=== PATIENT | female | born 1960 | race Caucasian/White ===

== ENCOUNTER 2016-08-17 10:58 | Inpatient (IN) | payer OTHER ==
--- NOTE | 2016-10-31 13:21 | HP ---
DATE OF CLINIC: 10/19/2016 JANET HUNG : 1960 PLANNED PROCEDURE: Right Total Knee Arthroplasty DATE OF PROCEDURE: November 01, 2016 SURGEON: Gorge Graham M.D. PCP: Dr. Jericho Brooks HISTORY OF PRESENT ILLNESS Janet Hung is a 56 year old female. * Medication list reviewed with patient allergy list reviewed with patient. * Tried NSAIDS * Tried Injections * Has not tried Physical Therapy 56-year-old female here for consultation with respect to her right knee. She recently saw Gurdeep on 05/20/16 for evaluation with history as follows: Ms. Hung is an established patient of the office. She is a pleasant 56-year-old female well known to Dr. Graham for left total knee arthroplasty on December 14, 2015 from which she has done well. At the time of her left total knee arthroplasty the patient did have known bilateral knee degenerative joint changes but her left was far more limiting than the right. She now considers her left knee her good knee. She has had several years of progressive atraumatic, right knee pain. No prior interventions from the standpoint of a surgery. She has done physical therapy and will the past and had cortisone injections and these have always been providing relief in short duration. She feels the knee grind as she takes it through motion. Most of her pain is with weight-bearing and is quite diffuse throughout the knee. She continues to have minimal rest pain. Primary pain is with startup. She denies any hip pain or radicular symptoms. She has not had any recent illness. She did have a remote gastric bypass and has lost over 150 pounds. As a result of that she does have some skin fold irritation which has been chronic for her. She is interested in discussion of definitive management options. She feels, besides her pain with weight-bearing that is worse at startup, lack of confidence and inability to trust the knee. After discussion and review of treatment options, both operative and non-operative, she has elected to proceed with surgical intervention and presents today preoperatively. She has had no recent illnesses. Prior radiographs are available for my review from 05/20/16. CURRENT MEDICATION * Amitriptyline HCl 50 MG Tablet 1 every bedtime 0 days, 0 refills * Effexor XR 150 MG Capsule Extended Release 24 Hour 1 once a day 0 days, 0 refills * Ibuprofen 800 MG Tablet as needed 0 days, 0 refills PAST MEDICAL/SURGICAL HISTORY Reported: Medical: A history of cancer melanoma removed from left calf in 1984, Reported numbness in back, Reported tingling in back, history of Arthritis, Depression, Hypertension, Vertigo, and Rheumatoid Arthritis. Surgical / Procedural: Prior surgery Right shoulder scope, RCR revision, LB removal, labral debridement, SAD revision performed by Dr.Brian Johnson at the [facility] on 03/03/2015 removal of malignant melanoma 06/28/1985,Right ankle ligament repair 1985, gastric bypass, 2 previous Right shoulder RCR surgeries, Left knee scope, Right elbow nerve repair, replacement of a knee Left knee replaced 12/14/[address] Graham, Hernia repair 3 mesh replacements (hiatal), umbilical hernia repair, and Carpal Tunnel Surgery (3)Left, (2)Right. Melanoma. SOCIAL HISTORY Behavioral: Caffeine use, current smoker smokes 1/2-1 pack per day for the past 40 yrs, currently trying to quit, and smoking status: Current everyday smoker. Alcohol: Alcohol use. Work: Occupation unemployed. ALLERGIES * No Known Allergies FAMILY HISTORY 1 children living Family medical history mother- heart disease, OA, cancer, HTN, depression father- cancer, HTN, heart disease REVIEW OF SYSTEMS Systemic: No fever and no recent weight change. Head: No head symptoms. Cardiovascular: No cardiovascular symptoms. Pulmonary: No pulmonary symptoms. Gastrointestinal: No gastrointestinal symptoms. Psychological: No psychological symptoms. Skin: No skin lesions and no rash. PHYSICAL FINDINGS * Vitals taken 10/19/2016 03:40 pm BP-Sitting R 144/101 mmHg 100 - 120/56 - 80 BP Cuff Size Regular Pulse Rate-Sitting 85 bpm 50 - 100 Temp-Oral 99.1 F 96 - 101 Height 64.5 in 59 - 69 Weight 225 lbs 12.8 oz 98 - 183 Body Mass Index 38.2 kg/m2 Body Surface Area 2.07 m2 Pain Level 0 Ears, Nose, Throat: * ENT: normal. Lungs: * Clear to auscultation. Cardiovascular: Heart Rate and Rhythm: * Normal. Abdomen: * Normal. Neurological: Motor: * Dominant Hand = Left Hand. Patient is an obese female in no acute distress, normal-appearing mood and affect. She ambulates with an obvious, asymmetric, antalgic gait. She stands with genu valgum and has a significant valgus thrust with ambulation. Left knee shows neutral alignment. Her gait is wide-based and somewhat waddling. Right knee exam shows skin integrity to be well-preserved, no wounds, rashes or lesions. Her genu valgum is correctable to neutral. She has 1+ laxity to valgus stress in full extension and 30 degrees of flexion. She is tender lateral greater than medial, but fairly diffuse. Mild discomfort with patellar compression with crepitation. Patella tracks well. Negative drawer. She has relatively poor muscular contour about the knee, but no obvious atrophy or asymmetry compared to the contralateral side. Mildly tender over the anteromedial proximal tibia. Calf is soft and NT. Distal light touch sensation and motor function are grossly intact and symmetric. Pulses are palpable. Gentle rotation of the hip is non-irritable. Evaluation of the left knee shows a well-healed anterior incision. No swelling or effusion. Good joint play and alignment. Motion is 0-110 degrees. No focal periarticular tenderness. TESTS * Test: CBC WITH DIFF Report Date: 10/19/2016 WBC 6.0 10*3/mL BASOPHIL 0.7 % RBC 4.23 10*6/uL NEUTROPHILS 52.9 % MCH 30.7 pg MCHC 31.6 g/dL Low RDW 14.2 % MCV 97.2 fL PLATELET COUNT 325 10*3/mL IMM NEUT % 0.2 % IMM NEUT # 0.0 10*3/mL MONOCYTES 8.0 % EOSINOPHIL 0.2 % Low HCT 41.1 % HGB 13.0 g/L LYMPHOCYTE 38.0 % ANC 3.2 10*3/mL * Test: PROTHROMBIN TIME Report Date: 10/19/2016 PROTIME 9.5 s INR 0.90 * Test: PARTIAL THROMBOPLASTIN TIME Report Date: 10/19/2016 APTT 23.0 s Low * Test: COMPREHENSIVE METABOLIC PANEL Report Date: 10/19/2016 ALT/SGPT 9 U/L ALBUMIN 4.4 g/dL ALB/GLOB RATIO 1.8 BUN 18 mg/dL BUN/CREAT RATIO 20 CALCIUM 9.7 mg/dL GLUCOSE 111 mg/dL High CREATININE 0.9 mg/dL SODIUM 143 meq/L POTASSIUM 4.8 meq/L CHLORIDE 105 meq/L CARBON DIOXIDE 27 meq/L ANION GAP 16 meq/L TOT PROTEIN 6.9 g/dL GLOBULIN 2.5 g/dL BILI,TOTAL 0.3 mg/dL AST/SGOT 15 U/L ALK PHOSPHATASE 95 U/L GFR 64 * Test: URINALYSIS WITH MICROSCOPIC Report Date: 10/19/2016 EPITHELIAL CELL 0-1 WBC NEG GLUCOSE NEGATIVE BACTERIA 2+ PH,URINE 6.0 SPEC. GRAVITY 1.020 KETONE NEGATIVE NITRITE POSITIVE High RBC 0 BLOOD NEGATIVE URINE CRYSTALS MANY CALCIUM OXALATE BILIRUBIN NEGATIVE APPEARANCE CLOUDY PROTEIN NEGATIVE COLOR YELLOW LEUK ESTERASE 1+ UROBILINOGEN NORMAL * Test: CULTURE, URINE Report Date: 10/20/2016 CULTURE, URINE See Report * Test: CULTURE, MRSA Report Date: 10/21/2016 CULTURE, MRSA See Report Radiographs of the right knee from 05/20/16 were reviewed with the patient. These show tricompartmental degenerative changes with medial and lateral irregularity. There is marginal spurring, particularly on the lateral tibial plateau. Small lateral osteophyte at the patellofemoral articulation. ASSESSMENT Tricompartmental degenerative disease, right knee. Compounding problem is valgus instability. THERAPY * Patient not eligible for fall risk assessment. PLAN * OTHER OxyCONTIN 10 MG T12A, 1 po q 12 hours-TO BE USED FOR AFTER SURGERY, 10 days, 0 refills OxyCODONE HCl 5 MG TABS, 1-2 po q 4-6 hours for break thru pain if needed-TO BE USED FOR AFTER SURGERY, 5 days, 0 refills * Total knee arthroplasty -Right Discussed with patient in detail the limitations, expectations as well as risks and possible complications of surgery including, but not limited to wound problems or infection, neurovascular injury, continued knee pain or dysfunction, including the possibility of prosthetic wear or failure over time that may require additional operative or non-operative treatment. Patient also realizes the perioperative risks including risks associated with anesthesia and would like to proceed. A full PAR conference was held, questions and concerns addressed and informed consent was obtained. Patient will be sent from my office for completion of the preoperative workup. Patient will enteric coated aspirin postoperatively for DVT prophylaxis as per risk stratification protocol.use Patient would like to perform their postop PT at [facility] in [place] with total knee arthroplasty protocol. CARE TEAM Jericho Brooks MD ARTI/sg
[2016-11-01] MEDS ORDERED: IV START KIT ONE (10:02)
[2016-11-01] MEDS ORDERED: CEFAZOLIN SODIUM 2 GRAM PREMIX 100 ML IV ONE (10:02)
[2016-11-01] MEDS ORDERED: LACTATED RINGERS 1,000 ML ONE ×2 (10:02→16:45)
[2016-11-01] MEDS ORDERED: BUPIVACAINE 0.25% (MDV) 20 ML in SODIUM CHLORIDE 0.9% FLUSH 20 ML IF PRN (10:15)
[2016-11-01] MEDS ORDERED: OXYCODONE HCL 10 MG TAB.SR PO ONE ×2 (10:15→10:45)
[2016-11-01] MEDS ORDERED: BUPIVACAINE 0.25% (MDV) 24 ML, MORPHINE SULFATE 8 MG, EPINEPHRINE 0.3 MG in SODIUM CHLO... IF PRN (10:15)
[2016-11-01] MEDS ORDERED: TRANEXAMIC ACID 1,000 MG in SODIUM CHLORIDE 0.9% 100 ML IV PRN (10:15)
[2016-11-01] MEDS ORDERED: ONDANSETRON 4 MG/2ML 2 ML VIAL IV ONE (10:15)
[2016-11-01] MEDS ORDERED: CELECOXIB 200 MG CAPSULE PO ONE (10:15)
[2016-11-01] MEDS ORDERED: GABAPENTIN 600 MG TABLET PO ONE (10:15)
[2016-11-01] MEDS ORDERED: POLYMYXIN B SULFATE 500,000 UNITS, BACITRACIN 25,000 UNITS in SODIUM CHLORIDE 3 L IRRIG... IR PRN (10:15)
[2016-11-01] MEDS ORDERED: TRAMADOL HCL 50 MG TABLET PO ONE (10:15)
[2016-11-01] MEDS ORDERED: CEFAZOLIN SODIUM 2 GRAM PREMIX 100 ML IV PRN (10:15)
[2016-11-01] MEDS ORDERED: CLONIDINE HCL 0.1 MG/24 HR (7 DAY PATCH) TD SCH (10:15)
[2016-11-01] MEDS ORDERED: FAMOTIDINE 20 MG TABLET PO ONE (10:15)
[2016-11-01] MEDS ORDERED: FAMOTIDINE 20 MG TABLET ONE (10:45)
[2016-11-01] MEDS ORDERED: TRAMADOL HCL 50 MG TABLET ONE (10:45)
[2016-11-01] MEDS ORDERED: ONDANSETRON 4 MG/2ML 2 ML VIAL ONE (10:46)
[2016-11-01] MEDS ORDERED: CELECOXIB 200 MG CAPSULE ONE (10:46)
[2016-11-01] MEDS ORDERED: GABAPENTIN 600 MG TABLET ONE (10:46)
[2016-11-01] MEDS ORDERED: CLONIDINE HCL 0.1 MG/24 HR (7 DAY PATCH) TD ONE (10:46)
[2016-11-01] MEDS ORDERED: FENTANYL 250 MCG/5 ML AMP ONE (10:57)
[2016-11-01] MEDS ORDERED: MIDAZOLAM HCL 5 MG/5 ML VIAL ONE (10:57)
[2016-11-01] MEDS ORDERED: SPINAL PROCEDURAL TRAY 1 EACH ONE (11:18)
[2016-11-01] MEDS ORDERED: NERVE BLOCK PROCEDURAL TRAY 1 EACH ONE (11:18)
[2016-11-01] MEDS ORDERED: ROPIVACAINE 0.2% 20 ML VIAL ONE (11:18)
[2016-11-01] MEDS ORDERED: DEXAMETHASONE SOD PHOS 4 MG/1 ML VIAL ONE (14:10)
[2016-11-01] MEDS ORDERED: LIDOCAINE 2% (PRES FREE) 5 ML VIAL ONE (14:10)
[2016-11-01] MEDS ORDERED: PROPOFOL 20 ML IV ONE ×5 (14:10→15:44)
[2016-11-01] MEDS ORDERED: ON-Q PUMP/ROPIVACAINE 0.2% 450 ML in PREMIX BAG 1 EACH NB PRN ×2 (14:21→16:52)
[2016-11-01] MEDS ORDERED: ONDANSETRON 4 MG/2ML 2 ML VIAL IV PRN ×2 (14:21→16:52)
[2016-11-01] MEDS ORDERED: FENTANYL 100 MCG/2 ML VIAL IV PRN (14:21)
[2016-11-01] MEDS ORDERED: HYDROMORPHONE HCL 1 MG/ML SYRINGE IV PRN (14:21)
[2016-11-01] MEDS ORDERED: ATROPINE SULFATE 0.4 MG/1 ML VIAL IV PRN (14:21)
[2016-11-01] MEDS ORDERED: PROMETHAZINE HCL 25 MG/ML VIAL IM PRN (14:21)
[2016-11-01] MEDS ORDERED: NALOXONE HCL 0.4 MG/ML VIAL IV PRN (14:21)
[2016-11-01] MEDS ORDERED: LACTATED RINGERS 1,000 ML IV SCH (14:30)
[2016-11-01 15:07] LABS: SPECIFIC GRAVITY 1.015 (1.001-1.030); URINE BILIRUBIN NEGATIVE (NEGATIVE); URINE BLOOD 1+ (NEGATIVE); URINE GLUCOSE (UA) NEGATIVE (NEGATIVE); URINE LEUKOCYTE ESTERASE TRACE (NEGATIVE); URINE NITRITE NEGATIVE (NEGATIVE); URINE PROTEIN NEGATIVE (NEGATIVE); URINE UROBILINOGEN NORMAL (0-1 mg/dl)
[2016-11-01 15:10] LABS: URINE APPEARANCE CLEAR; URINE COLOR AMBER
[2016-11-01] MEDS ORDERED: ON-Q PUMP/ROPIVACAINE 0.2% 450 ML ONE (15:56)
--- NOTE | 2016-11-01 16:02 | PCMBPN ---
Brief Post Op Note: Date of Procedure: 11/01/16 Preoperative Diagnosis: DJD right knee Postoperative Diagnosis: same Procedure: right TKA Surgeon: Gorge Graham MD Assist: Georgie Anesthesia: spinal/add block ([facility]) Condition: stable to PAR Complications: none IV Fluids: 1800 mLs of LR Urine Output: 200 mLs Estimated Blood Loss: 150 mLs Tourniquet Time: ~40 min Specimens: [N/A] Implants: Attune Drains: none
[2016-11-01 16:08] LABS: URINE EPITHELIAL CELLS 0-1 /hpf; URINE WBC 0-1 /hpf
[2016-11-01 16:09] LABS: URINE BACTERIA TRACE
--- NOTE | 2016-11-01 16:49 | RAD ---
EXAMINATION: KNEE RIGHT 1 OR 2 VIEWS INDICATION:Postop right total knee arthroplasty. TECHNIQUE: 2 views of the right knee were obtained. COMPARISON: Presurgical exam dated 05/20/2016. A Right total knee arthroplasty is noted. The femoral and tibial components appear well seated. No adjacent fracture is identified. Alignment is anatomic. The immediate postoperative soft tissue changes are noted. IMPRESSION: Satisfactory immediate postoperative appearance right total knee arthroplasty.
[2016-11-01] MEDS ORDERED: CYCLOBENZAPRINE HCL 10 MG TABLET PO PRN (16:52)
[2016-11-01] MEDS ORDERED: CALCIUM CARBONATE 500 MG TAB.CHEW PO PRN (16:52)
[2016-11-01] MEDS ORDERED: KETOROLAC TROMETHAMINE 30 MG/ML 1 ML VIAL IV PRN (16:52)
[2016-11-01 18:11] VITALS: BMI 36.9
[2016-11-01] MEDS ORDERED: PUMP TUBING ONE (19:10)
[2016-11-01] MEDS: D5 1/2NS with 20 mEq KCL 1,000 ML IV SCH (19:13)
[2016-11-01] MEDS: AMITRIPTYLINE HCL 50 MG TABLET PO SCH (21:43)
[2016-11-01] MEDS: ASCORBIC ACID 500 MG TABLET PO SCH (21:43)
[2016-11-01] MEDS: DOCUSATE SODIUM 100 MG CAPSULE PO SCH (21:43)
[2016-11-01] MEDS: ACETAMINOPHEN 500 MG TABLET PO SCH (21:43)
[2016-11-01] MEDS: CEFAZOLIN SODIUM 1 GRAM PREMIX 1 G in Premix (D5W) 50 ml 1 EACH IV SCH (21:43)
[2016-11-01] MEDS: HYDROMORPHONE HCL 0.5 MG/0.5 ML SYRINGE IV PRN (21:56)
[2016-11-02] MEDS: D5 1/2NS with 20 mEq KCL 1,000 ML IV SCH ×3 (03:43→19:21)
[2016-11-02] MEDS: ACETAMINOPHEN 500 MG TABLET PO SCH ×4 (04:19→23:28)
[2016-11-02] MEDS: HYDROMORPHONE HCL 0.5 MG/0.5 ML SYRINGE IV PRN (04:19)
[2016-11-02] MEDS: CEFAZOLIN SODIUM 1 GRAM PREMIX 1 G in Premix (D5W) 50 ml 1 EACH IV SCH (05:36)
[2016-11-02] MEDS: OXYCODONE HCL 5 MG TABLET PO PRN ×4 (05:44→20:16)
[2016-11-02 06:54] LABS: HEMATOCRIT 36.4 % (37.0-47.0); HEMOGLOBIN 11.6 gm/l (12.0-16.0); MEAN CELL VOLUME 96.6 fl (81.0-99.0); MEAN CORPUSCULAR HEMOGLOBIN 30.8 pg (27.0-31.0); MEAN CORPUSCULAR HGB CONC 31.9 g/dl (33.0-37.0); RED CELL DISTRIBUTION WIDTH 13.6 % (11.5-14.5)
[2016-11-02 07:10] LABS: CALCIUM 9.1 mg/dL (8.6-10.3)
[2016-11-02] MEDS: CELECOXIB 200 MG CAPSULE PO SCH (09:10)
[2016-11-02] MEDS: MULTIVITAMINS 1 TAB TABLET PO SCH (09:10)
[2016-11-02] MEDS: ASPIRIN (ENTERIC COATED) 325 MG TABLET.EC PO SCH (09:10)
[2016-11-02] MEDS: VENLAFAXINE 75 MG PO SCH (09:12)
[2016-11-02] MEDS: ASCORBIC ACID 500 MG TABLET PO SCH ×2 (09:12→20:16)
[2016-11-02] MEDS: DOCUSATE SODIUM 100 MG CAPSULE PO SCH ×2 (09:12→20:16)
--- NOTE | 2016-11-02 09:26 | PDOC43 ---
- Subjective Findings: Ortho POD R TKA Patient awake, A and O times 4 this am and currently eating breakfast. No present c/o. Pain is well controlled. Denies CP/SOB/NV. Taking a regular diet and positive flatus. Eager to get moving. Subjective: Denies Chest Pain, Denies Shortness of Breath, Denies Nausea, Denies Vomiting, Denies Fever - Objective Vital Signs Temperature 98.2 F 11/02/16 07:28 Pulse Rate 69 11/02/16 07:28 Respiratory Rate 17 11/02/16 07:28 Blood Pressure 161/98 11/02/16 07:28 O2 Saturation by Pulse Oximetry 97 11/02/16 07:28 Oxygen Delivery Method Room Air Oxygen Flow Rate 0 Laboratory 11/02/16 06:20 11/02/16 06:20 11/02/16 06:20 RBC 3.77 L MCHC 31.9 L Active Medication Orders Category Date Time Status Acetaminophen [Tylenol] Med 11/01/16 22:30 Active 1,000 mg PO Q6H Amitriptyline HCl [Elavil] Med 11/01/16 21:00 Active 50 mg PO BEDTIME Ascorbic Acid [Vitamin C] Med 11/01/16 21:00 Active 500 mg PO BID Aspirin (Enteric Coated) [Ecotrin] Med 11/02/16 09:00 Active 325 mg PO DAILY Bisacodyl [Dulcolax] Med 11/04/16 16:04 Active 10 mg [place] DAILY PRN Calcium Carbonate [Tums] Med 11/01/16 16:52 Active 1,000 - 2,000 mg PO Q2H PRN Celecoxib [Celebrex] Med 11/02/16 09:00 Active 200 mg PO DAILY Cyclobenzaprine HCl [Flexeril] Med 11/01/16 16:52 Active 10 mg PO TID PRN D5 1/2NS with 20 mEq KCL [D51/2NS with 20 mEq KCL] 1, Med 11/01/16 16:52 Active 000 ml IV 125 mls/hr Docusate Sodium [Colace] Med 11/01/16 21:00 Active 100 mg PO BID Hydromorphone HCl [Dilaudid] Med 11/01/16 16:52 Active 0.5 mg IV Q1H PRN Ketorolac Tromethamine [Toradol] Med 11/01/16 16:52 Active 30 mg IV Q6H PRN Magnesium Hydroxide [Milk of Magnesia] Med 11/02/16 16:04 Active 30 ml PO DAILY PRN Multivitamins [One-A-Day] Med 11/02/16 09:00 Active 1 tab PO DAILY On-Q Pump/Ropivacaine 0.2% 450 ml Med 11/01/16 16:52 Active Premix Bag [Premix Fluid] 1 each NB Q50H Ondansetron 4 mg/2ml Vial [Zofran] Med 11/01/16 16:52 Active 4 - 6 mg IV Q6H PRN Oxycodone HCl [Roxicodone] Med 11/01/16 16:52 Active 5 - 10 mg PO Q4H PRN Remove Patch Med 11/02/16 16:04 Once 1 each TD X1 ONE Sodium Chloride 0.9% Flush [Normal Saline 10ml Flush] Med 11/01/16 16:52 Active 10 - 50 ml IV PRN PRN Sodium Chloride 0.9% Flush [Normal Saline 10ml Flush] Med 11/02/16 01:00 Active 10 ml IV Q8HR Venlafaxine Xr [Effexor Xr] Med 11/02/16 09:00 Active 150 mg PO DAILY Intake and Output 10/31/16 11/01/16 11/02/16 23:59 23:59 23:59 Intake Total 2540 Output Total 6400 Balance -3860 Neurological: No Normal Gait (ambulating with a walker post R TKA) Peripheral Pulses: Right Posterior Tibialis: 1+, Right Dorsalis Pedis: 1+ - Right Lower Extremity Incision: Well Approximated (with a subcutaneous closure, skin glue and mesh. Moderate knee edema.), No Dressing Saturated, No Shadow Drainage, No Drainage, No Erythema, No Rash - Problems (1) Status post total knee replacement, right Status: AcuteAssessment/Plan: Ortho POD 1 R TKA 1. Anticoagulation: ASA 325mg daily for 6 weeks, pneumatic compression, TEDS, mobility. 2. Pain management per written orders. Call for modification. 3. PT/OT BID R TKA protocol WBAT. 4. Encourage incentive spirometry and bed exercises q hour when awake. 5. Acute surgical blood loss anemia: asympomatic presently, will monitor. 6. Disposition: Likely DC home tomorrow with outpatient PT as scheduled.
[2016-11-02] MEDS ORDERED: REMOVE PATCH 1 EACH UNIT TD SCH (10:15)
[2016-11-02] MEDS ORDERED: MAGNESIUM HYDROXIDE 30 ML UDCUP PO PRN (16:04)
[2016-11-02] MEDS ORDERED: REMOVE PATCH 1 EACH UNIT TD ONE (16:04)
[2016-11-02] MEDS: AMITRIPTYLINE HCL 50 MG TABLET PO SCH (20:16)
[2016-11-03] MEDS: OXYCODONE HCL 5 MG TABLET PO PRN (02:13)
[2016-11-03] MEDS: D5 1/2NS with 20 mEq KCL 1,000 ML IV SCH (02:33)
[2016-11-03] MEDS: ACETAMINOPHEN 500 MG TABLET PO SCH ×2 (03:29→10:01)
[2016-11-03 05:59] LABS: HEMATOCRIT 36.4 % (37.0-47.0); HEMOGLOBIN 11.5 gm/l (12.0-16.0)
[2016-11-03] MEDS: DOCUSATE SODIUM 100 MG CAPSULE PO SCH (08:34)
[2016-11-03] MEDS: MULTIVITAMINS 1 TAB TABLET PO SCH (08:34)
[2016-11-03] MEDS: VENLAFAXINE 75 MG PO SCH (08:34)
[2016-11-03] MEDS: CELECOXIB 200 MG CAPSULE PO SCH (08:34)
[2016-11-03] MEDS: ASPIRIN (ENTERIC COATED) 325 MG TABLET.EC PO SCH (08:34)
[2016-11-03] MEDS: ASCORBIC ACID 500 MG TABLET PO SCH (08:35)
--- NOTE | 2016-11-03 09:17 | PDOC43 ---
- Subjective Findings: Ortho POD 2 R TKA Patient awoken from sleep but quickly A and O times 4. States she's a bit more stiff today but pain is well controlled. Denies CP/SOB/NV. Taking a regular diet and positive flatus. Very good progress with ambulatory PT. Would like to discharge home today. Subjective: Denies Chest Pain, Denies Shortness of Breath, Denies Nausea, Denies Vomiting, Denies Fever - Objective Vital Signs Temperature 98.1 F 11/03/16 07:11 Pulse Rate 83 11/03/16 07:11 Respiratory Rate 17 11/03/16 07:11 Blood Pressure 141/83 11/03/16 07:11 O2 Saturation by Pulse Oximetry 93 11/03/16 07:11 Oxygen Delivery Method Room Air Oxygen Flow Rate 0 Laboratory 11/03/16 05:30 11/02/16 06:20 Active Medication Orders Category Date Time Status Acetaminophen [Tylenol] Med 11/01/16 22:30 Active 1,000 mg PO Q6H Amitriptyline HCl [Elavil] Med 11/01/16 21:00 Active 50 mg PO BEDTIME Ascorbic Acid [Vitamin C] Med 11/01/16 21:00 Active 500 mg PO BID Aspirin (Enteric Coated) [Ecotrin] Med 11/02/16 09:00 Active 325 mg PO DAILY Bisacodyl [Dulcolax] Med 11/04/16 16:04 Active 10 mg [place] DAILY PRN Calcium Carbonate [Tums] Med 11/01/16 16:52 Active 1,000 - 2,000 mg PO Q2H PRN Celecoxib [Celebrex] Med 11/02/16 09:00 Active 200 mg PO DAILY Cyclobenzaprine HCl [Flexeril] Med 11/01/16 16:52 Active 10 mg PO TID PRN Docusate Sodium [Colace] Med 11/01/16 21:00 Active 100 mg PO BID Hydromorphone HCl [Dilaudid] Med 11/01/16 16:52 Active 0.5 mg IV Q1H PRN Magnesium Hydroxide [Milk of Magnesia] Med 11/02/16 16:04 Active 30 ml PO DAILY PRN Multivitamins [One-A-Day] Med 11/02/16 09:00 Active 1 tab PO DAILY On-Q Pump/Ropivacaine 0.2% 450 ml Med 11/01/16 16:52 Active Premix Bag [Premix Fluid] 1 each NB Q50H Ondansetron 4 mg/2ml Vial [Zofran] Med 11/01/16 16:52 Active 4 - 6 mg IV Q6H PRN Oxycodone HCl [Roxicodone] Med 11/01/16 16:52 Active 5 - 10 mg PO Q4H PRN Sodium Chloride 0.9% Flush [Normal Saline 10ml Flush] Med 11/01/16 16:52 Active 10 - 50 ml IV PRN PRN Sodium Chloride 0.9% Flush [Normal Saline 10ml Flush] Med 11/02/16 01:00 Active 10 ml IV Q8HR Venlafaxine Xr [Effexor Xr] Med 11/02/16 09:00 Active 150 mg PO DAILY Intake and Output 11/01/16 11/02/16 11/03/16 23:59 23:59 23:59 Intake Total 3340 650 Output Total 8100 2050 Balance -4760 -1400 Neurological: No Normal Gait (ambulating with a walker post R TKA) Peripheral Pulses: Right Posterior Tibialis: 1+, Right Dorsalis Pedis: 1+ - Right Lower Extremity Incision: Well Approximated (with a subcutaneous closure, skin glue and mesh. Moderate knee edema. Thigh and calf are SNT), No Dressing Saturated, No Shadow Drainage, No Drainage, No Erythema, No Rash, No Mendy Intact (none) Motor: Extensor Hallucis Longus: 5/5, Tibialis Anterior: 5/5, Gastrocnemius: 4/5 , Peroneals: 5/5, Quadriceps: 4/5 Gross Sensation to Light Touch: Present: Deep Peroneal Nerve, Superficial Peroneal Nerve, Medial Plantar Nerve, Lateral Plantar Nerve, Sural Nerve, Saphenous Nerve Motion: Supine AROM: knee flexion to 50 with passive improvement. SLR without assist. Ankle full AROM. - Problems (1) Status post total knee replacement, right Status: AcuteAssessment/Plan: Ortho POD 2 R TKA, doing well 1. Continue: Anticoagulation: ASA 325mg daily for 6 weeks, pneumatic compression , TEDS, mobility. 2. Continue: Pain management per written orders. Call for modification. 3. Continue: PT/OT BID R TKA protocol WBAT. 4. Continue: Encourage incentive spirometry and bed exercises q hour when awake. 5. Acute surgical blood loss anemia: continues to be asympomatic. 6. Disposition: DC home today after PT. 7. Follow-up with Dr. Graham as scheduled.
[2016-11-03 12:50] VITALS: BP 153/81
--- NOTE | 2016-11-04 11:15 | OP ---
MAREN HUNG : 1960 [id number] DATE OF SURGERY: November 01, 2016 PREOPERATIVE DIAGNOSIS: Degenerative joint disease right knee POSTOPERATIVE DIAGNOSIS: Same PROCEDURE: Right Total Knee Arthroplasty COMPONENTS: Attune size 6 posterior stabilized cemented femoral component, size 6 cemented tibial base plate, 7mm RP posterior stabilized articular insert, 32mm anatomic resurfacing patella. SURGEON: Gorge Graham M.D. NEWSPAPER DELIVERY DRIVER: Georgie DIAS) ANESTHESIA: Spinal plus adductor nerve block per Nila ESTIMATED BLOOD LOSS: 150 cc URINE OUTPUT: 200 cc IV FLUID REPLACEMENT: per anesthesia, 1.8 liters crystalloid DRAINS: None TOURNIQUET TIME: Approximately 40 minutes COMPLICATIONS: None HISTORY: Briefly, patient is a 56-year-old female with clinical and radiographic evidence of advanced degenerative disease of their right knee. They have failed traditional non-operative management and desire elective total knee arthroplasty. For additional details, please refer to the previously dictated Preoperative History and Physical Examination. A PAR conference was held, questions and concerns were addressed, and informed consent was obtained. FINDINGS: Tricompartmental changes more notable lateral, particularly posterolaterally on the femur as well as distal lateral femoral wear. Under anesthesia she had fairly marked recurvatum of at least 10 degrees. Patella tended to track laterally. Periarticular bone was osteopenic. PROCEDURE: The patient was taken to the operating room after the placement of a spinal anesthetic and adductor nerve block. They were placed supine on the operating room table, a tourniquet was applied to the proximal thigh and the right lower extremity was prepped and draped out in the usual sterile fashion. Preoperative IV antibiotics were given empirically. Intraoperative DVT prophylaxis consisted of contralateral foot pumps. Personal filtration suits were used as was a closed room environment. A WHO timeout was taken. Surgical site was identified and confirmed. The leg was then elevated and the tourniquet inflated after gravity exsanguination. This was released after initial exposure and not used again until cementation. Tranexamic acid was infiltrated over 10 minutes prior to incision, 1 gram dose per protocol. A similar 2nd dose was given at initiation of closure. With the knee flexed, an anteromedial incision was made from the level of the tibial tubercle to two centimeters proximal to the superior pole of the patella. A medial arthrotomy was performed with a mini-mid vastus approach. A medial subperiosteal proximal tibial release was performed and a portion of the anterior fat pad was excised to improve visualization. The supra-patellar pouch was raised subperiosteally. The anterior and posterior cruciate ligaments were excised as were the remaining portions of the anterior horns of the medial and lateral menisci. Minimally invasive instrumentation and philosophy were used throughout the procedure in an attempt to decrease the extent of soft tissue disruption/damage. Patient matched cutting blocks were also used as per our preoperative plan. The [employer] patient matched distal femoral pin guide was applied and distal resection pins were placed as well as marking external rotation. We confirmed that the alignment matched our preoperative plan and made the distal femoral cut. We confirmed the size of the femur and placed the appropriate 4-in-1 cutting block making our anterior and posterior condylar cuts followed by the chamfer cuts. Residual marginal osteophytes were removed. Attention was then directed to the tibia which was retracted anteriorly. Remaining meniscal tissue was excised. The [employer] patient matched tibial pin guide was then positioned and proximal tibial resection pins were placed. Alignment was confirmed as per our preoperative plan and the proximal tibial cut made. We then balanced the flexion and extension gaps by removing posteromedial and posterolateral femoral osteophytes under direct visualization. We confirmed adequate hemostasis. We then completed the femoral preparation by cutting the notch. Femoral and tibial trial components were placed. The tibial punch was passed. We were able to obtain full extension with nice roll back and good coronal plane alignment and stability. The patella tracked well and was prepared using the Kiran patellar reaming system removing 9 mm. of bone. Osteophytes were removed prior to this with a rongeur and we performed a circumferential limited denervation using cautery. This was sized accordingly and punch holes were drilled. Femoral lugs were drilled as well. The knee was then re-exsanguinated and the tourniquet inflated. Double antibiotic pulsatile lavage was used to irrigate the knee and clean the cancellous paola interstices which were then carefully dried. The initial periarticular injection, per protocol, was injected at this point to the posterior capsule as well as posteromedially and synovium. Two doses of high viscosity, antibiotic impregnated, methylene blue-stained, polymethylmethacrylate were used to cement the tibial, femoral, and then patellar components. The knee was held in extension while the cement cured. All residual methacrylate was meticulously removed. Attention was then directed towards closure. We irrigated and the retinaculum was closed with a running #2 absorbable StratoFix suture. The 2nd periarticular injection was given at this point, per protocol, anteromedially in the pes as well as the extensor mechanism and the IT band. The repair was checked in maximum flexion. We then irrigated the subcutaneous tissue and closed with interrupted 2-0 and 3-0 Vicryl. The skin was then re-approximated with running subcuticular 4-0 Monocryl followed by Dermabond Prineo. A sterile compression dressing was applied. The patient was then transferred to their hospital bed and sent to the post anesthesia recovery room in stable condition. They tolerated the procedure well. Sponge, instrument, and needle count were correct. CC: Jericho Brooks MD [facility]
--- NOTE | 2016-11-04 11:57 | DS ---
Janet HUNG [id number] : 1960 DATE OF ADMISSION: November 01, 2016 DATE OF DISCHARGE: November 03, 2016 DISCHARGE DIAGNOSES: Right knee degenerative joint disease. HOSPITAL PROCEDURES: Right total knee arthroplasty. SURGEON: Gorge Graham M.D. BRIEF HISTORY: Patient is a 56-year-old female with both clinical and radiographic evidence of advanced DJD of their right knee. For the full history please see the chart note. BRIEF HOSPITAL COURSE: Patient was admitted on November 01, 2016. Dr. Gorge Graham performed a right total knee arthroplasty. They were moved to the recovery room in stable condition. They were given 4 doses of antibiotic for empiric coverage. DVT prophylaxis consisted of aspirin 325 mg daily for six weeks, pneumatic compression JUAN JOSÉ hose and mobility. PT was instituted postop day 1 with right total knee arthroplasty protocol, weightbearing as tolerated. Their incision site remained benign, their vital signs remained stable and they remained neurally and vascularly intact through the duration of the stay. They were discharged home on postop day 2 to continue their outpatient PT at [facility] potentially PT [facility] based on the patient's final choice with right total knee arthroplasty protocol, weightbearing as tolerated. DISCHARGE INSTRUCTIONS: 1. Keep the wound site clean. May shower with Aquacel dressing intact. Call office with any questions or concerns and f/u for your dressing change as scheduled 1 week postop. 2. Continue the use of JUAN JOSÉ hose bilaterally. 3. Cooling unit 3-4 times daily for 30 minutes duration. 4. Outpatient PT at [facility] potentially PT [facility] based on the patient's final choice for right total knee arthroplasty protocol, weightbearing as tolerated. MEDICATIONS: 1. Patient is to resume normal preop medications. 2. Anti-coagulation will be with aspirin, 325 mg daily for six weeks. 3. Pain management will be with OxyContin, 10mg every 12 hours x 10 days, Oxycodone, 5mg 1-2 every 4 hours prn for breakthrough pain. 4. Patient was also advised on utilization of a multi-vitamin with mineral daily as well as Vitamin C, 500mg daily for 1 month. 5. Patient encouraged to take an iron supplement in the form of ferrous sulfate, 325mg daily for 4 weeks. 6. Colace, 100mg, b.i.d. until regular bowel movement. FOLLOW-UP: Please return to the clinic as scheduled for your first scheduled postop check. Prior to that point in time please call with any questions or concerns. Job [id number] CC: Fabio aguirre M.D. [facility] [place] [facility] [place]
[2016-11-04] MEDS ORDERED: BISACODYL 10 MG SUP PR PRN (16:04)
== END 2016-11-03 13:00 | disposition home or self-care (01) | DRG 470 ==
LOC: OR 11-01 10:07 → MS 11-01 17:14
PROVIDERS: ADMIT Orthopaedic Surgery; ATTEND Orthopaedic Surgery
PROC: 0SRC0J9 Replacement of Right Knee Joint with Synthetic Substitute, Cemented, Open Approach (ICD-10-PCS; principal; 2016-11-01)
DX: M17.11 Unilateral primary osteoarthritis, right knee (principal); D62 Acute posthemorrhagic anemia; M25.761 Osteophyte, right knee; F17.210 Nicotine dependence, cigarettes, uncomplicated; F32.9 Major depressive disorder, single episode, unspecified; I10 Essential (primary) hypertension; M06.9 Rheumatoid arthritis, unspecified; M21.061 Valgus deformity, not elsewhere classified, right knee